=== PATIENT | male | born 1945 | race Caucasian/White ===

== ENCOUNTER → 2017-08-19 | Outpatient (CLI) | payer MEDICARE, BC | END | disposition home or self-care (01) | LOC: PCVCCLINIC 09:50 | DX: I25.10 Atherosclerotic heart disease of native coronary artery without angina pectoris (principal); I77.9 Disorder of arteries and arterioles, unspecified; E78.00 Pure hypercholesterolemia, unspecified; R09.89 Other specified symptoms and signs involving the circulatory and respiratory systems; R93.1 Abnormal findings on diagnostic imaging of heart and coronary circulation; R00.2 Palpitations; R07.89 Other chest pain; Z87.891 Personal history of nicotine dependence; Z79.82 Long term (current) use of aspirin; Z79.899 Other long term (current) drug therapy | CPT/HCPCS: 93005; G0463 ==

== ENCOUNTER → 2017-08-25 | Outpatient (CLI) | payer MEDICARE, BC | END | disposition home or self-care (01) | LOC: PCVCIMAG 14:39 | DX: I25.10 Atherosclerotic heart disease of native coronary artery without angina pectoris (principal); R06.00 Dyspnea, unspecified; R00.2 Palpitations; R07.9 Chest pain, unspecified; R60.9 Edema, unspecified; E83.59 Other disorders of calcium metabolism | CPT/HCPCS: 36415; 93325; 93351 ==

== ENCOUNTER → 2018-03-17 | Outpatient (CLI) | payer MEDICARE, BC | END | disposition home or self-care (01) | LOC: PCVCCLINIC 14:36 | PROVIDERS: ATTEND Internal Medicine Cardiovascular Disease | DX: I25.10 Atherosclerotic heart disease of native coronary artery without angina pectoris (principal); I49.3 Ventricular premature depolarization; R07.89 Other chest pain; E78.00 Pure hypercholesterolemia, unspecified; R00.2 Palpitations; Z87.891 Personal history of nicotine dependence; Z79.82 Long term (current) use of aspirin; Z88.0 Allergy status to penicillin | CPT/HCPCS: 36415; 80061; 93005; G0463 ==

== ENCOUNTER → 2018-03-23 | Outpatient (CLI) | payer MEDICARE, BC ==
[~2018-03-23] MED LIST: REGADENOSON 0.4 MG/5 ML DISP.SYRIN. IV ONE
--- NOTE | 2018-03-24 19:04 | PCVCIMAG ---
APPROVED REPORT Study performed: 03/23/2018 08:48:23 EXAM: Comprehensive 2D, Doppler, and color-flow Echocardiogram Patient Location: Echo lab Room #: 2Status: routine BSA: 2.23 HR: 71 bpmBP: 124/60 mmHg Rhythm: NSR Other Information Study Quality: Good Risk Factors: Cardiac Risk Factors: Hyperlipidemia Indications Chest Pressure CAD Palpitations Chest Pain 2D Dimensions IVSd: 8.84 (7-11mm)LVOT Diam: 21.93 (18-24mm) LVDd: 47.91 mm PWd: 10.20 (7-11mm)Ascending Ao: 36.69 (22-36mm) LVDs: 32.67 (25-40mm) Left Atrium: 41.57 (27-40mm) Aortic Root: 32.87 mm LV Single Plane 4CH: 56.64 % LV Single Plane 2CH: 53.23 % Volumes Left Atrial Volume (Systole) Single Plane 4CH: 52.27 mLSingle Plane 2CH: 47.58 mL Biplane LA Volume: 50.00 mLLA ESV Index: 23.00 mL/m2 Aortic Valve AoV Peak Ras.: 1.03 m/s AO Peak Gr.: 4.27 mmHgLVOT Max P.94 mmHg LVOT Max V: 0.70 m/s LASHAY Vmax: 2.55 cm2 Mitral Valve E/A Ratio: 1.1 MV Decel. Time: 184.82 ms MV E Max Ras.: 0.74 m/s MV A Ras.: 0.69 m/s IVRT: 89.97 ms TDI E/Lateral E': 9.25E/Medial E': 10.57 Medial E' Ras.: 0.07 m/s Lateral E' Ras.: 0.08 m/s Pulmonary Valve PV Peak Ras.: 0.90 m/sPV Peak Gr.: 3.21 mmHg Pulmonary Vein P Vein S: 0.55 m/sP Vein A: 0.31 m/s P Vein D: 0.36 m/sP Vein A Dur.: 90.0 msec P Vein S/D Ratio: 1.53 Tricuspid Valve TR Peak Ras.: 1.76 m/s TR Peak Gr.: 12.37 mmHg TV Vmax: 0.70 m/sPA Pressure: 19.00 mmHg Left Ventricle The left ventricle is normal size. There is normal LV segmental wall motion. There is normal left ventricular wall thickness. Left ventricular systolic function is normal. The left ventricular ejection fraction is within the normal range. LVEF is 55-60%. The left ventricular diastolic function is normal. Right Ventricle The right ventricle is normal size. The right ventricular systolic function is normal. Atria The left atrium size is normal. The right atrium size is normal. Aortic Valve Aortic valve is trileaflet. The Aortic valve is minimally sclerotic. No aortic regurgitation is present. There is no aortic valvular stenosis. Mitral Valve The mitral valve is normal in structure. There is no mitral valve regurgitation noted. No evidence of mitral valve stenosis. Tricuspid Valve The tricuspid valve is normal in structure. Trace tricuspid regurgitation with a PA pressure of 19 mmHg. No pulmonary hypertension. Pulmonic Valve The pulmonary valve is normal in structure. There is no pulmonic valvular regurgitation. Great Vessels The aortic root is normal in size. Ascending aorta is normal in caliber. Aortic arch is normal in caliber. IVC is normal in size and collapses >50% with inspiration. Pericardium There is no pericardial effusion. There is no pleural effusion. <Conclusion> The left ventricle is normal size. LVEF is 55-60%. The right ventricle is normal size. The left atrium size is normal. Aortic valve is trileaflet. The Aortic valve is minimally sclerotic. There is no aortic valvular stenosis. There is no mitral valve regurgitation noted. Trace tricuspid regurgitation with a PA pressure of 19 mmHg. No pulmonary hypertension. The aortic root is normal in size. There is no pericardial effusion.
--- NOTE | 2018-03-25 14:25 | PCVCIMAG ---
APPROVED REPORT Imaging Protocol: Rest Tc-99m/Stress Tc-99m 1 day Study performed: 03/23/2018 09:42:09 Indication: Chest pressure/tightness, Lightheaded, Dizzy, Palpitations Patient Location: Out-Patient Stress Nurse: Syl Leary RN AR Tech:Ai MedinaUGO oden Ht: 5 ft 11 in Wt: 224 lbs BSA: 2.21 m2 HR: 73 bpm BP: 130/63 mmHg BMI: 31.2 Rhythm: SR, PVC's Medical History Medical History: Hyperlipidemia, CAD, Age Medications: Aspirin, Breo, Livalo, Primidone, Flomax Allergies: PCN, Latex Pretest Chest Pain Characteristics: No chest pain Resting Data Rest SPECT myocardial perfusion imaging was performed in supine position 45 minutes following the intravenous injection of 11.3 mCi of Tc-99m Sestamibi. Time of rest injection: 0945 Date: 03/23/2018 Administration Route: IV Administration Site: Left AC Pharmacologic Stress Pharmacologic stress test was performed by injecting Regadenoson 0.4 mg IV push over 10-15 seconds immediately followed by the intravenous injection of 35.7 mCi of Tc-99m Sestamibi. Time of stress injection: 1100 Date: 03/23/2018 Administration Route: IV Administration Site: Left AC Gated Stress SPECT was performed 45 minutes after stress injection. The images were gated to evaluate regional wall motion and calculate left ventricular ejection fraction. Comments Prior Nuclear Stress Test 04/2016: Nonischemic Stress Test Details Stress Test: Pharmacologic stress was paired with low level exercise. Reason for pharmacologic stress test: physical limitation, exercise intolerance. HRMax Heart Rate (APMHR): 146 bpm Resting HR: 73 bpmTarget HR (85% APMHR): 124 bpm Max HR Achieved: 111 bpm % of APMHR: 76 Recovery HR: 77 bpm BP Resting BP: 130/63 mmHg Recovery BP: 122/69 mmHg ECG Resting ECG: SR, PVC's Stress ECG: ST, Sinus Rhythm, NSSTT changes Recovery ECG: SR, PVC's Clinical Reason for Termination: Completed protocol Stress Symptoms: Dyspnea Exercise duration: 4 min 00 sec Exercise capacity: 1.6 METs Symptoms resolved with caffeine. Stress ECG Conclusion ECG: Non-ischemic Study Quality Study: Good Study Data Post stress, the left ventricular ejection was 72%.. SSS: 0 SRS: 1 SDS: 0 TID = 0.86. Perfusion No evidence of stress induced ischemia or prior myocardial infarction. Wall Motion Normal left ventricular size and function with no regional wall motion abnormalities. Nuclear Conclusion No evidence of stress induced ischemia or prior myocardial infarction. Normal left ventricular size and function with no regional wall motion abnormalities. Post stress, the left ventricular ejection was 72%. No change since prior study dated April 2016. Interpreted by: Satinder Funk MD Electronically Approved: 03/23/2018 18:29:40 <Conclusion> ECG: Non-ischemic
== END | disposition home or self-care (01) ==
LOC: PCVCIMAG 13:00
PROVIDERS: ATTEND Internal Medicine Cardiovascular Disease
DX: I25.10 Atherosclerotic heart disease of native coronary artery without angina pectoris (principal); R06.09 Other forms of dyspnea; I49.3 Ventricular premature depolarization; R00.2 Palpitations; R42 Dizziness and giddiness; R07.89 Other chest pain
CPT/HCPCS: 78452; 93017; 93306; A9500; J2785

== ENCOUNTER → 2018-10-07 | Outpatient (CLI) | payer MEDICARE, BC | END | disposition home or self-care (01) | LOC: PCVCCLINIC 16:21 | PROVIDERS: ATTEND Internal Medicine Cardiovascular Disease | DX: I10 Essential (primary) hypertension (principal); E78.00 Pure hypercholesterolemia, unspecified; I49.3 Ventricular premature depolarization; R60.9 Edema, unspecified; Z88.0 Allergy status to penicillin; Z91.040 Latex allergy status | CPT/HCPCS: 36415; 80061; 93005; G0463 ==